=== PATIENT | male | born 1955 | race Caucasian/White ===

== ENCOUNTER 2016-08-05 06:56 | Outpatient (CLI) | payer OTHER | END 2016-08-05 06:57 | disposition short-term general hospital (02) | LOC: EMS 06:56 | PROVIDERS: ATTEND Surgery | DX: M25.552 Pain in left hip (principal); W17.89XA Other fall from one level to another, initial encounter; Y93.E6 Activity, residential relocation; Y92.9 Unspecified place or not applicable | CPT/HCPCS: A0425; A0429 ==